=== PATIENT | male | born 1955 | race Caucasian/White ===

== ENCOUNTER → 2018-04-11 | Outpatient (CLI) | payer OTHER | LOC: FIMAGING 16:57 | DX: M51.36 Other intervertebral disc degeneration, lumbar region (principal) ==

== ENCOUNTER → 2018-05-09 | Outpatient (CLI) | payer OTHER | LOC: FIMAGING 18:32 | DX: M51.36 Other intervertebral disc degeneration, lumbar region (principal); M53.86 Other specified dorsopathies, lumbar region; M48.061 Spinal stenosis, lumbar region without neurogenic claudication ==